=== PATIENT | female | born 1965 | race Two or more races ===

== ENCOUNTER 2024-04-17 20:46 | Emergency (ER) | payer OTHER ==
[~2024-04-17] VITALS: Ht 177.8 cm; Wt 82.9 kg
[2024-04-17 20:46] VITALS: TEMP 97.7
[2024-04-17 21:07] VITALS: BP 149/82; PULSE 78; RESP 16; O2SAT 100
[2024-04-17] MEDS ORDERED: AZIT500T66 PO (21:23)
[2024-04-17] MEDS ORDERED: IBUP-1456 PO (21:23)
[2024-04-17] MEDS: AZITHROMYCIN 250 MG TAB PO ONE (21:31)
== END 2024-04-17 21:40 | disposition home or self-care (01) ==
LOC: ER 20:46
DX: K04.7 Periapical abscess without sinus (principal); Z88.0 Allergy status to penicillin